=== PATIENT | female | born 1950 | race Caucasian/White ===

== ENCOUNTER → 2022-04-16 | Day surgery (SDC) | payer MEDICARE ==
[~2022-04-16] MED LIST: ALL DAY ALLERGY10 MG PO; BUPROPION XL150 MG PO; BUSPIRONE HCL30 MG PO; ECOTRIN81 MG PO; EFFEXOR XR150 MG PO; GLUCOPHAGE500 MG PO; LAMICTAL100 MG PO; LIPITOR10 MG PO; OMEPRAZOLE20 MG PO; PROTONIX20 MG PO; PROTONIX40 MG PO; PROZAC40 MG PO; QUETIAPINE FUM100 MG PO; RELPAX40 MG PO; SINGULAIR10 MG PO; SYNTHROID 50 M50 MCG PO; TOPAMAX50 MG PO; VITAMIN B-121000 MCG PO; ZESTRIL2.5 MG PO
== END | disposition home or self-care (01) ==
LOC: OR 06:58
PROVIDERS: Internal Medicine Gastroenterology
PROC: 0DBN8ZZ Excision of Sigmoid Colon, Via Natural or Artificial Opening Endoscopic (ICD-10-PCS; principal; 2022-04-16 08:50)
DX: Z12.11 Encounter for screening for malignant neoplasm of colon (principal); D12.5 Benign neoplasm of sigmoid colon; K55.20 Angiodysplasia of colon without hemorrhage; K64.1 Second degree hemorrhoids; I10 Essential (primary) hypertension; E78.5 Hyperlipidemia, unspecified; Z86.16 Personal history of COVID-19; K21.9 Gastro-esophageal reflux disease without esophagitis; K44.9 Diaphragmatic hernia without obstruction or gangrene; M19.90 Unspecified osteoarthritis, unspecified site; E03.9 Hypothyroidism, unspecified; G43.909 Migraine, unspecified, not intractable, without status migrainosus; E11.9 Type 2 diabetes mellitus without complications; E66.3 Overweight; Z68.29 Body mass index [BMI] 29.0-29.9, adult; Z79.82 Long term (current) use of aspirin; Z79.84 Long term (current) use of oral hypoglycemic drugs; Z79.890 Hormone replacement therapy; Z79.899 Other long term (current) drug therapy; Z80.0 Family history of malignant neoplasm of digestive organs; Z86.010 Personal history of colon polyps
CPT/HCPCS: 82962; J2704